=== PATIENT | female | born 1945 | race Caucasian/White ===

== ENCOUNTER → 2019-05-17 | Outpatient (CLI) | payer MEDICARE, BC ==
--- NOTE | 2019-05-20 19:01 | P.PN ---
Progress Note - Text Progress Note Date: 05/20/19 This is a report on the 48 hour monitor. Baseline EKG showed sinus rhythm. The average heart rate of 65. Minimal heart rate is 41 and maximum is 120. Occasional APCs were noted. Very rare PVC noted. There is no accompanying diary. Final impression: #1. Sinus rhythm. #2 episodes of sinus bradycardia. #3 occasional APCs with short runs of SVT #4. Rare PVC. #5. Patient did not maintain dairy.
--- NOTE | 2019-05-21 11:13 | HM ---
This is a report on the 48 hour monitor. Baseline EKG showed sinus rhythm. The average heart rate of 65. Minimal heart rate is 41 and maximum is 120. Occasional APCs were noted. Very rare PVC noted. There is no accompanying diary. Final impression: #1. Sinus rhythm. #2 episodes of sinus bradycardia. #3 occasional APCs with short runs of SVT #4. Rare PVC. #5. Patient did not maintain dairy. MTDD
== END | disposition home or self-care (01) ==
LOC: RADECHMAIN 08:59
PROVIDERS: ATTEND Family Medicine
DX: R00.2 Palpitations (principal)
CPT/HCPCS: 93225; 93226

== ENCOUNTER → 2019-05-20 | Outpatient (CLI) | payer MEDICARE, BC ==
--- NOTE | 2019-05-21 08:39 | US ---
EXAMINATION TYPE: US carotid duplex BILAT DATE OF EXAM: 05/20/2019 COMPARISON: NONE CLINICAL HISTORY: R42 DIZZINESS. Dizziness, giddiness, blurred vision EXAM MEASUREMENTS: RIGHT: Peak Systolic Velocity (PSV) cm/sec ----- Right CCA: 79.6 ----- Right ICA: 122.7 ----- Right ECA: 149.7 ICA/CCA ratio: 1.5 RIGHT: End Diastole cm/sec ----- Right CCA: 16.2 ----- Right ICA: 22.1 ----- Right ECA: 8.6 LEFT: Peak Systolic Velocity (PSV) cm/sec ----- Left CCA: 88.3 ----- Left ICA: 158.1 ----- Left ECA: 108.5 ICA/CCA ratio: 1.8 LEFT: End Diastole cm/sec ----- Left CCA: 14.5 ----- Left ICA: 33.7 ----- Left ECA: 10.0 VERTEBRALS (direction of flow): Right Vertebral: Antegrade Left Vertebral: Antegrade Rhythm: Normal Bilateral intimal thickening, plaque bilateral bulb and ICA, elevated velocities: right proximal ECA, left mid ICA and left distal ICA, no significant stenosis. IMPRESSION: Stenosis of the left internal carotid artery of 50-69%. No hemodynamically significant stenosis withi n the right internal carotid artery or common carotid artery although values do not approach stenosis of 50-69%. Criteria for Assigning % of Stenosis / Diameter reduction (Estimation based on the indirect measurements of the internal carotid artery velocities (ICA PSV). 1. Normal (no stenosis)=ICA PSV < 125 cm/s: ratio < 2.0: ICA EDV<40 cm/s. 2. Less than 50% stenosis=ICA PSV < 125 cm/s: ratio < 2.0: ICA EDV<40 cm/s. 3. 50 to 69% stenosis=ICA PSV of 125 to 230 cm/s: ration 2.0 ? 4.0: ICA EDV 40-100 cm/s. 4. Greater than 70% stenosis to near occlusion= ICA PSV > 230 cm/s: ratio > 4.0: ICA EDV > 100 cm/s. 5. Near occlusion= ICA PSV velocities may be low or undetectable: variable ratio and ICA EDV. 6. Total occlusion=unable to detect flow.
== END | disposition home or self-care (01) ==
LOC: RADUSMAIN 15:42
PROVIDERS: ATTEND Family Medicine
DX: I65.22 Occlusion and stenosis of left carotid artery (principal); H53.9 Unspecified visual disturbance
CPT/HCPCS: 93880

== ENCOUNTER → 2019-05-23 | Outpatient (CLI) | payer MEDICARE ==
--- NOTE | 2019-05-23 16:43 | MR ---
EXAMINATION TYPE: MR brain wo con DATE OF EXAM: 05/23/2019 COMPARISON: None HISTORY: Dizziness CONTRAST: Performed utilizing 0 mL intravenous Gadavist gadolinium contrast. TECHNIQUE: Multiplanar, multiecho imaging on a 3.0 Ronda magnet is performed through the brain. Stud y is performed within 24 hours of arrival to the hospital. The craniovertebral junction is normal. The pituitary is normal. Diffusion-weighted imaging is performed. No abnormal hyperintensity is present to suggest an acute i ntracranial infarct or acute ischemic change. Signal through the brain is normal. Normal vascular flow voids are present. There are scattered periventricular white matter hyperintensities on T2 and inversion recovery weight ed sequences. These are nonspecific but could be related to microvascular ischemic change. The larges t area is within the right centrum semiovale measuring 0.7 cm. Periventricular white matter changes c ould be related to microvascular ischemic change among other etiologies. IMPRESSIONS: 1. Periventricular white matter signal changes are nonspecific but could be related to microvascular ischemic change.
== END | disposition home or self-care (01) ==
LOC: RADMRIMAIN 12:38
PROVIDERS: ATTEND Family Medicine
DX: R90.89 Other abnormal findings on diagnostic imaging of central nervous system (principal); R42 Dizziness and giddiness; H53.9 Unspecified visual disturbance
CPT/HCPCS: 70551